=== PATIENT | female | born 1960 | race Caucasian/White ===

== ENCOUNTER 2017-10-25 12:13 | Emergency (ER) | payer MEDICAID, SELFPAY ==
[~2017-10-25] VITALS: Ht 157.5 cm; Wt 89.8 kg
[2017-10-25 12:39] VITALS: BP 122/76
[2017-10-25] MEDS ORDERED: PRED10TA23 PO (15:36)
== END 2017-10-25 15:52 | disposition home or self-care (01) ==
LOC: ER 12:14
DX: M79.672 Pain in left foot (principal); R20.0 Anesthesia of skin; Z79.899 Other long term (current) drug therapy; Z56.0 Unemployment, unspecified
CPT/HCPCS: 93971; 99284

== ENCOUNTER 2020-01-15 17:43 | Emergency (ER) | payer MEDICAID ==
[~2020-01-15] VITALS: Ht 172.7 cm; Wt 97.7 kg
[2020-01-15 17:58] VITALS: BP 145/88
[2020-01-15] MEDS: ketorolac trometh. 30mg/ml inj. IM ONE ×2 (19:28→19:29)
[2020-01-15] MEDS ORDERED: ibuprofen tablet 400 MG TABLET PO ONE (19:40)
== END 2020-01-15 19:50 | disposition home or self-care (01) ==
LOC: ER 17:43
DX: S93.491A Sprain of other ligament of right ankle, initial encounter (principal); W01.0XXA Fall on same level from slipping, tripping and stumbling without subsequent striking against object, initial encounter; Z56.0 Unemployment, unspecified; Y93.89 Activity, other specified; Y92.89 Other specified places as the place of occurrence of the external cause; Y99.8 Other external cause status
CPT/HCPCS: 73590; 73610; 73630; 99284; J1885